=== PATIENT | female | born 1970 | race Caucasian/White ===

== ENCOUNTER 2018-04-30 06:54 | Day surgery (SDC) | payer OTHER, BC ==
[2018-04-30] MEDS ORDERED: MIDAZOLAM 1 MG/ML 2 ML INJ (07:58)
[2018-04-30] MEDS ORDERED: PROPOFOL 40 ML (07:58)
== END 2018-04-30 10:33 | disposition home or self-care (01) ==
LOC: GIL 06:54
DX: R19.4 Change in bowel habit (principal); K29.30 Chronic superficial gastritis without bleeding; K64.8 Other hemorrhoids; K31.7 Polyp of stomach and duodenum; J45.909 Unspecified asthma, uncomplicated; E03.9 Hypothyroidism, unspecified
CPT/HCPCS: 43239; 88305; 88312

== ENCOUNTER 2018-05-07 09:39 | Emergency (ER) | payer OTHER ==
[2018-05-07 10:22] LABS: URINE BLOOD (Dip) POC Trace-intact (NEGATIVE); URINE GLUCOSE (Dip) POC Negative (NEGATIVE); URINE KETONES (Dip) POC Negative (NEGATIVE); URINE LEUKOCYTE EST (Dip) POC Negative (NEGATIVE); URINE NITRITE (Dip) POC Negative (NEGATIVE); URINE TOTAL PROTEIN POC Negative (NEGATIVE)
[2018-05-07 10:22] LABS: URINE PH (Dip) POC 5.5 (5.0-8.5)
[2018-05-07 11:01] LABS: ADD MAN DIFF? NO
[2018-05-07 11:05] LABS: BASOPHIL # 0.1 10^3/ul (0.0-0.1); BASOPHILS % 0.7 % (0.0-2.0); EOSINOPHILS # 0.2 10^3/ul (0.0-0.5); EOSINOPHILS % 2.7 % (0.0-7.0); HEMATOCRIT 40.8 % (37.0-47.0); HEMOGLOBIN 13.6 g/dl (12.0-16.0); LYMPHOCYTES # 2.4 10^3/ul (0.8-2.9); LYMPHOCYTES % 35.5 % (15.0-51.0); MEAN CORPUSCULAR HEMOGLOBIN 30.2 pg (29.0-33.0); MEAN CORPUSCULAR HGB CONC 33.3 g/dl (32.0-37.0); MEAN CORPUSCULAR VOLUME 90.5 fl (82.0-101.0); MEAN PLATELET VOLUME 10.2 fl (7.4-10.4); MONOCYTE # 0.4 10^3/ul (0.3-0.9); MONOCYTES % 5.2 % (0.0-11.0); NEUTROPHIL # 3.8 10^3/ul (1.6-7.5); NEUTROPHILS % 55.5 % (39.0-77.0); PLATELET COUNT 243 10^3/UL (140-415); RED BLOOD COUNT 4.51 10^6/ul (4.20-5.40); RED CELL DISTRIBUTION WIDTH 12.6 % (11.5-14.5)
[2018-05-07 11:05] LABS: WHITE BLOOD COUNT 6.8 10^3/ul (4.8-10.8)
[2018-05-07 11:26] LABS: ALANINE AMINOTRANSFERASE 42 IU/L (13-69); ALBUMIN 4.7 g/dl (3.3-4.9); ALBUMIN/GLOBULIN RATIO 1.46; ALKALINE PHOSPHATASE 116 IU/L (42-121); ANION GAP 12 (8-16); ASPARTATE AMINO TRANSFERASE 45 IU/L (15-46); BILIRUBIN,INDIRECT 0.4 mg/dl (0-1.1); BILIRUBIN,TOTAL 0.4 mg/dl (0.2-1.3); BLOOD UREA NITROGEN 17 mg/dl (7-20); CALCIUM 9.4 mg/dl (8.4-10.2); CARBON DIOXIDE 29 mmol/L (21-31); CHLORIDE 104 mmol/L (97-110); CREATININE 0.63 mg/dl (0.44-1.00); GLUCOSE 102 mg/dl (70-220); LIPASE 146 U/L (23-300); POTASSIUM 3.9 mmol/L (3.5-5.1); SODIUM 141 mmol/L (135-144); TOTAL PROTEIN 7.9 g/dl (6.1-8.1)
[2018-05-07] MEDS ORDERED: IOHEXOL 300MG/ML 150 ML BTL (11:54)
[2018-05-07] MEDS ORDERED: BARIUM SULFATE 135 ML (E-Z HD) PO (11:54)
== END 2018-05-07 18:19 | disposition home or self-care (01) ==
LOC: FTE 09:39
DX: K29.70 Gastritis, unspecified, without bleeding (principal); J45.909 Unspecified asthma, uncomplicated
CPT/HCPCS: 74230; 80053; 81003; 81025; 83690; 85025; 93005; 99285-25